=== PATIENT | female | born 1995 | race Caucasian/White ===

== ENCOUNTER 2017-02-24 02:04 | Emergency (ER) | payer OTHER, MEDICAID ==
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
[2017-02-24 02:09] VITALS: BP 130/76; RESP 106; TEMP 98.2; O2SAT 96
== END 2017-02-24 02:31 | disposition home or self-care (01) ==
DX: S09.90XA Unspecified injury of head, initial encounter (principal); V43.52XA Car driver injured in collision with other type car in traffic accident, initial encounter; V49.49XA Driver injured in collision with other motor vehicles in traffic accident, initial encounter; Y92.410 Unspecified street and highway as the place of occurrence of the external cause; Y99.8 Other external cause status; Y93.89 Activity, other specified